=== PATIENT | female | born 1975 | race Caucasian/White ===

== ENCOUNTER 2017-02-24 05:50 | Day surgery (SDC) | payer OTHER ==
[~2017-02-24] VITALS: Ht 162.6 cm; Wt 102.9 kg
[2017-02-24] VITALS (8 sets, daily range): BP systolic 106–121; BP diastolic 65–76; PULSE 68–93; RESP 14–18; O2SAT 95–99
[~2017-02-24 05:50] MED LIST: ALPR0.254 PO; AMPH20TA5 PO; BUPR150T8 PO; CALC600T12 PO; CETI10CA PO; CHOL200047 PO; CITA40TA13 PO; LEVO137C2 PO; LORazepam 1 mg Tablet PO PRN; MAGN400T4 PO
[2017-02-24] MEDS ORDERED: Rocuronium 10 mg/mL 5 mL Inj ONE (05:51)
[2017-02-24] MEDS ORDERED: Dexamethasone 4 mg/mL Inj ONE (05:51)
[2017-02-24] MEDS ORDERED: Ketamine 10 mg/mL 20 mL Inj ONE (05:51)
[2017-02-24] MEDS ORDERED: fentaNYL-PF 50 mCg/mL 2 mL Inj ONE (05:51)
[2017-02-24] MEDS ORDERED: Propofol 10,000 mCg/mL 20 mL Inj ONE (05:51)
[2017-02-24] MEDS ORDERED: Ondansetron 2 mg/mL 2 mL Inj ONE (05:51)
[2017-02-24] MEDS ORDERED: DEXTROSE 5% IV ONE (06:00)
[2017-02-24] MEDS: Lactated Ringer's 1,000 ML IV SCH ×3 (06:00→10:00)
[2017-02-24] MEDS ORDERED: GENTAMICIN IV ONE (06:00)
[2017-02-24] MEDS ORDERED: Clindamycin Inj 900 MG in IV Premix 1 EACH IV SCH (06:00)
[2017-02-24] MEDS ORDERED: Clindamycin 900 mg/50 mL D5W Premix IV ONE (06:03)
[2017-02-24 06:49] LABS: BASOPHILS % (AUTO) 0.3 % (0-3); EOSINOPHILS % (AUTO) 2.4 % (0-5); MONOCYTES % (AUTO) 8.7 % (4-12); Mean Corpuscular Hemoglobin 30.5 pg (27.0-35.0); Mean Corpuscular Volume 92.8 fL (81-100); NEUTROPHILS % (AUTO) 58.5 % (40-74); Platelet Count 273 bil/L (150-400)
[2017-02-24] MEDS ORDERED: HYDROmorphone 1 mg/mL Inj IVPUSH PRN ×2 (07:40→10:20)
[2017-02-24] MEDS ORDERED: Dexamethasone 4 mg/mL Inj IVPUSH PRN (07:40)
[2017-02-24] MEDS ORDERED: Ondansetron 2 mg/mL 2 mL Inj IVPUSH PRN ×2 (07:40→10:20)
[2017-02-24] MEDS ORDERED: Lactated Ringer's 500 ML IV PRN (07:40)
[2017-02-24] MEDS ORDERED: MetoCLOpramide 5 mg/mL 2 mL Inj IVPUSH PRN ×2 (07:40→10:20)
[2017-02-24] MEDS ORDERED: fentaNYL-PF 50 mCg/mL 2 mL Inj IVPUSH PRN (07:40)
[2017-02-24] MEDS ORDERED: Lactated Ringer's 1,000 ML IV SCH (07:40)
[2017-02-24] MEDS ORDERED: EPHEDrine Sulfate 50 mg/mL Inj IVPUSH PRN (07:40)
[2017-02-24] MEDS ORDERED: Phenylephrine 10,000 mCg/mL Inj IVPUSH PRN (07:40)
--- NOTE | 2017-02-24 07:40 | PCM.HPANE ---
Patient Data Surgeon Admitting Provider: Attending Provider:Georgia Hernandez MD Primary Care Physician:Haydee Zurita MD Other Provider:Balta James Anesthesia Reason for Visit Abnormal Uterine And Vaginal Bleeding Ht/WT & BMI Height (Feet): 5 Height (Inches): 4 Weight (Kilograms): 102.9 Body Mass Index 38.00 Allergies Coded Allergies: latex (Verified Allergy, Unknown, itch, 02/23/17) Uncoded Allergies: CEPHALOSPORIN (Allergy, Unknown, hives, 02/23/17) Past Anesthesia History Anesthesia History: Denies:: Abnormal Airway, Anesthesia Reactions, Difficult Intubation, Fam Anesthesia Reaction Diabetes History Hx Diabetes?: No MRSA MRSA: No Medications Hypertension Medication: No Home Meds Incl Beta Meme: No Reported Medications Cetirizine HCl (Zyrtec)10 Mg Thfgrom57 Mg PO HS #30 CAPSULE Ref 0 02/23/17 Bupropion ER (Wellbutrin SR)150 Mg Tablet.er150 Mg PO BID Ref 0 02/23/17 Cholecalciferol (Vitamin D3) (Vitamin D3)2,000 Unit Capsule2,000 Unit PO DAILY 02/23/17 Levothyroxine (Tirosint)137 Mcg Pasnasm153 Mcg PO DAILY 02/23/17 Magnesium Oxide 400 Mg Auordr353 Mg PO DAILY 02/23/17 Citalopram 40 Mg Zvsykf20 Mg PO DAILY 30 Days Ref 0 02/23/17 Calcium Carbonate (Calcium)600 Mg Zrfgzy529 Mg PO DAILY 02/23/17 Alprazolam 0.25 Mg Tablet0.25 Mg PO TID PRN For Anxiety Ref 0 02/23/17 Amphet Asp/Amphet/D-Amphet (Adderall)20 Mg Rxczic24 Mg PO DAILY Ref 0 02/23/17 History History of ENT Problems?: Yes HEENT History: Positive for:: TMJ (clenches teeth, occasional nightguard) Denies:: Abnormal Airway Cataracts Difficult Intubation Dysphagia Glaucoma Hearing Problem Sinus Problem Denture Type: None Teeth Condition: Within Normal Limits Hx of Heart Problems?: No Cardiovascular History: Denies:: AICD Abdominal Aortic Aneurism Atrial Fibrillation Cardiac Surgery Chest Pain Congestive Heart Failure Coronary Artery Disease Edema Heart Murmur Hypertension Irregular Heartbeat Pacemaker Hx of Respiratory Problem?: No Respiratory History: Denies:: Asthma COPD Emphysema Oxygen Administration Pneumonia Tuberculosis Use of C-PAP Machine (hx of CPAP use, not since tonsillectomy 2012) Use of Inhalers / NEBS Hx Neurologic Problems?: Yes Neurological History: Positive for:: Dizziness (occasional) Headaches Denies:: Alzheimer's Disease CVA Dementia Multiple Sclerosis Parkinson's Disease Seizures TIA Hx of GI Problems?: No Hx of Problems?: Yes Genitourinary History: Denies:: Kidney Stones Urinary Tract Infection Other Pertinent History: pt has prior hx of laparascopic left kidney tumor removal- benign Female Hx: Positive for:: Problems with Breasts? (hx breast reduction) Denies:: Currently (neg preg test) Skin History: Denies:: History Skin Disorders? 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 Denies:: Blood Transfusions Hx Diabetes: No Hx Alcohol Use: NoHx Substance Use: NoHave You Smoked inLast 12 mo: No Stop/Bang Treated for Sleep Apnea?: No Do You Have a CPAP Machine?: No S-Snoring: Do You Snore Loudly: No T-Tired: feel tired, fatigued: Yes O-Obsered: Observed not breath: No P-Blood Pressure: treated: No B- Body Mass Index > 35 kg/m2: Yes A- Age over 50: No N- Neck Large Circumference: No G- Gender Male: No SARAH Total Score: 2 SARAH Risk Assessment: Low Risk, <3 Yes Risk Assessment Category Category 1A: Patient has history of documented sleep apnea, and HAS NOT received any narcotic, sedative or anesthesia administration during this stay. Category 1B: Patient has history of documented sleep apnea, and HAS received any narcotic , sedative or anesthesia administration during this stay Category 2: Patient has SUSPECTED Obstructive Sleep Apnea, and HAS received any narcotic , sedative or anesthesia administration during this stay. Category 3: Patient has SUSPECTED Obstructive Sleep Apnea and HAS NOT received narcotic, sedative or anesthesia administration during this stay. Category 4: Outpatient in Procedural Areas with known sleep apnea or who screen positive for High Risk via the STOP/BANG questionnaire. Exam Exam Vital Signs Vital Signs Date Time Temp Pulse Resp B/P Pulse Ox O2 Delivery O2 Flow Rate FiO2 02/24/17 06:16 35.9 85 17 109/76 96 Room Air General Appearance: Alert, Oriented X3, Cooperative, No Acute Distress HEENT/AIRWAY: MP 2 Lungs: Clear to Auscultation, Normal Air Movement Heart: Exam Unremarkable, Regular Rate/Rhythm, No Murmurs/Rubs/Gallops Meds/Labs/Diagnostics Admission Meds Current Medications Lactated Ringer's (Lr) 1,000 ml @ 120 mls/hr Q8H20M IV Last administered on t 06:00; Start 02/24/17 at 05:00; Stop 02/24/17 at 13:19 Labs Test 02/24/17 06:30 White Blood Count 7.0th/mm3 (3.8-10.1) Red Blood Count 4.03mil/mm3 (3.90-5.20) Hemoglobin 12.3g/dL (12.0-15.6) Hematocrit 37.4% (35.0-46.0) Mean Corpuscular Volume 92.8fL (81-100) Mean Corpuscular Hemoglobin 30.5pg (27.0-35.0) Mean Corpuscular Hemoglobin Concent 32.9% (32.0-37.0) Red Cell Distribution Width 13.1% (12.3-15.4) Platelet Count 273bil/L (150-400) Neutrophils (%) (Auto) 58.5% (40-74) Lymphocytes (%) (Auto) 30.0% (14-46) Monocytes (%) (Auto) 8.7% (4-12) Eosinophils (%) (Auto) 2.4% (0-5) Basophils (%) (Auto) 0.3% (0-3) Plan Impression Patient chart reviewed, patient interviewed and anesthestic plan with risks, benefits, and alternatives discussed, and informed consent obtained. NPO per Anesth. Guidelines: Yes ASA Physical Status: ASA2 Mod Systemic Disease (bmi 38) Anesthetic Plan: GA Bene/Risks/Altern/Consents: Yes HP Complete Prior to Induction: Yes Jens Shepherd MD Feb 24, 2017 07:40
[2017-02-24] MEDS ORDERED: Bupivacaine-MPF 0.5% W/EPI 30 mL Inj INFILTRATE ONE (08:10)
--- NOTE | 2017-02-24 10:15 | PCM.DIGYN ---
Surgical Discharge Instruction Dates of Hospitalization Date of Hospital Admission Providers Admitting Physician: Primary Care Physician: Haydee Zurita MD Attending Physician: Georgia Hernandez MD Diet Discharge Diet: No restrictions Activity Discharge Activity-General: Balance rest and activity, Activity as energy allows, No lifting >10 pounds for 4-6 weeks, No driving while taking narcotic, Other (Pelvic rest x6 weeks ) Dressing and Incisional Care Dressing Care: Keep dressing clean, dry & intact Hygiene: May shower, NO bathtub, hot tub or whirlpool Additional Instructions Discharge Instructions Your surgery was uncomplicated. Please call with severe pain, temperature greater than 100.5, heavy vaginal bleeding, fevers or chills, or malodorous discharge. Follow Up Plan Follow-up appointment: Weeks (2) Call your provider for: Fever, Chills, Shortness of breath, Heavy vaginal bleeding, Increasing pain Georgia Hernandez MD Feb 24, 2017 10:15
[2017-02-24] MEDS ORDERED: oxyCODONE-Acetamin 5-325 mg Tablet PO PRN (10:20)
[2017-02-24] MEDS ORDERED: diphenhydrAMINE 25 mg Capsule PO PRN (10:20)
--- NOTE | 2017-02-24 11:06 | OP ---
[address] [address] OPERATIVE REPORT PATIENT: MICHELET REYES : 1975 MR#: [id number] ADMIT: 02/24/2017 JOB ID: [id number] DATE OF SURGERY: 02/24/2017 PREOPERATIVE DIAGNOSIS(ES): Abnormal uterine bleeding and recurrent abnormal Pap smears. POSTOPERATIVE DIAGNOSIS(ES): Abnormal uterine bleeding and recurrent abnormal Pap smears. PROCEDURE PERFORMED: 1. Total laparoscopic hysterectomy with bilateral salpingectomy. 2. Cystoscopy. SURGEON: Georgia Hernandez M.D. SERVER DEVELOPER: Tanya Drew M.D., who was necessary for safe completion of the case. ANESTHESIA: General endotracheal anesthesia. ESTIMATED BLOOD LOSS: 150 cc. FLUID REPLACEMENT: 1200 cc of crystalloid. URINE OUTPUT: 400 cc of clear yellow urine. FINDINGS: Eight week size uterus. Normal appearing ovaries and fallopian tubes. Right-sided paratubal cyst, simple appearing paratubal cyst. COMPLICATIONS: None apparent. INDICATIONS: This is a 41-year-old G 1, P 1-0-0-1 female who presented to our clinic requesting definitive management of abnormal uterine bleeding as well as treatment for recurrent abnormal Pap smears requiring repeated colposcopies. After discussing with her all of her treatment options, she elected to proceed with a total laparoscopic hysterectomy, bilateral salpingectomy and cystoscopy. She did have a Mirena IUD in place. Risks, benefits and alternatives were discussed with her prior to surgery and she elected to proceed. DESCRIPTION OF PROCEDURE: The patient was taken to the operating room. She was placed in dorsal lithotomy position. Prepped and draped in the usual sterile fashion for the surgery. A bivalved speculum was placed. Her cervix was grasped with an Allis clamp and serially dilated to allow a size 7 Hegar dilator. A medium-sized VCare uterine manipulator was then placed and a Cesar catheter was inserted. Prior to placement of the VCare uterine manipulator, her Mirena IUD was removed. Attention was then turned to her abdomen. After injection with local anesthetic, an incision was made through her previous 5 mm infraumbilical port site for her laparoscopic appendectomy. A Veress needle was then inserted through the midline of the umbilicus and the abdomen was then insufflated. The opening pressure was higher than would be expected so this was then removed and direct visualized entry was then completed using a 5 mm trocar and intra-abdominal placement was then confirmed. Next the right lower quadrant and left lower quadrant 5 mm ports were then placed after injection of local anesthetic and a 5 mm incision. These trocars were then placed under direct visualization. The abdominal cavity was surveyed and noted to be free of adhesive disease. There was a moderate amount of preperitoneal fat which did make visualization of the uterus moderately difficult. The patient was then placed in Trendelenburg position. The right fallopian tube was elevated and using the Thunderbeat cautery was along the mesosalpinx to the level of the cornua. This was then removed at the level of the cornua and brought out and sent to Pathology. The patient desired ovarian conservation and the utero-ovarian ligament was then cauterized and transected using the Thunderbeat. Round ligament was then cauterized and transected and the broad ligament was to anterior and posterior sheaths and the uterine serosa was brought anteriorly across the top of the lower uterine segment to create a bladder flap. Separation of the broad ligament allowed for skeletonization of the uterine arteries. This was then sealed with the electrocautery. Attention was then turned to the right side where the right fallopian tube was elevated and transected along the mesosalpinx to the level of the uterine cornua. This was then transected and removed from the abdominal cavity after the small paratubal cyst was drained. This was then sent to Pathology. The utero-ovarian ligament was then cauterized and transected followed by the round ligament. The anterior and posterior sheaths of the broad ligament were then transected down towards the uterine isthmus and the previously created bladder flap was then connected across the anterior portion of the uterine serosa until the bladder was appropriately reflected downward off the lower uterine segment. After the right-sided uterine arteries were skeletonized, these were then cauterized and sealed and cut. Attention was then turned back to the left side where the left uterine arteries were then transected as well and the descending branch of the uterine artery was brought down bilaterally away from the field of dissection around the vaginal cuff. The colpotomy was then made using the Thunderbeat until the green Death by Party uterine manipulator cup was identified and this was carried around starting posteriorly until it was brought all the way circumferentially and the uterus and cervix were from the top of the vagina. The uterus and cervix were then removed en bloc and sent to Pathology. Sponge and glove was then placed into the vagina. The abdominal cavity was then irrigated and the vaginal cuff was then closed with a V-Loc suture in a running, nonlocking fashion starting in the left cornua. The suture was run in a continuous suture to the left cornua about the apex and then brought to the right apex at which point it was brought back three stitches back to the midline to prevent any dehiscence or suture unraveling. This was then cut at the level of the tissue and the remainder of the suture and needle were brought out of the abdominal cavity. The pelvis was then irrigated and hemostasis was noted. The pneumoperitoneum was released from the abdomen and hemostasis was again noted with lower intra-abdominal pressure. The skin was then closed with 4-0 Vicryl and Dermabond was placed on top of these and a cystoscopy was performed. The Cesar catheter was removed from the bladder and the cystoscope was then inserted and a survey of the entire bladder revealed no evidence of any bladder injury, trauma or sutures and she had strong bilateral ureteral jets. The cystoscope was then removed. The procedure was completed. The patient tolerated this procedure well. She recovered in PACU. All sponge, needle and instrument counts were correct.
--- NOTE | 2017-02-24 12:34 | PCM.ANEP1 ---
Post Anesthesia PACU Phase 1 Assessment Vital Signs Vital Signs Date Time Temp Pulse Resp B/P Pulse Ox O2 Delivery O2 Flow Rate FiO2 02/24/17 11:50 78 18 113/70 95 Room Air 02/24/17 11:22 84 16 106/70 97 Room Air 02/24/17 10:50 74 14 116/70 96 Nasal Cannula 2 02/24/17 10:21 90 16 118/75 99 Simple Mask 10 02/24/17 10:15 36.7 93 14 121/76 99 Simple Mask 10 02/24/17 06:16 35.9 85 17 109/76 96 Room Air Anesthetic Administered: GA Level of Alertness: Sleepy, easy to arouse REYES's with Equal Strength: Yes Pain: No Nausea or Vomiting: No CV Function & Hydration Stable: Yes Airway Device: Oralpharangeal Airway Oxygen Delivery: Simple Mask Lungs: Clear to Auscultation, Normal Air Movement Dermatome Level: Full Sensation PACU Phase 2 Assessment Complications: No Follow up Care: No Patient Instructions Provided: N/A Jens Shepherd MD Feb 24, 2017 12:34
[2017-02-24] MEDS ORDERED: oxyCODONE-Acetamin 5-325 mg Tablet PO ONE (13:08)
[2017-02-25] MEDS ORDERED: Gentamicin Per Pharmacist XX ONE (06:00)
[2017-02-25] MEDS ORDERED: DEXTROSE 5% IV ONE (06:00)
[2017-02-25] MEDS ORDERED: Clindamycin Inj 900 MG in IV Premix 1 EACH IV SCH (06:00)
[2017-02-25] MEDS ORDERED: GENTAMICIN IV ONE (06:00)
--- NOTE | 2017-02-27 15:15 | PATH ---
SURGICAL PATHOLOGY Attending Physician:Georgia Hernandez, CASE STATUS: Signed Out PATIENT NAME: MICHELET REYES PID: [id number] : 1975 DATE COLLECTED:02/24/2017 21:55 SPECIMEN: 1: Fallopian Tube, Biopsy 2: Fallopian Tube, Biopsy 3: Uterus +/- tubes/ovaries, except neoplastic, prolapse CLINICAL HISTORY: ABNORMAL UTERINE BLEEDING 1). LEFT FALLOPIAN TUBE 2). RIGHT FALLOPIAN TUBE 3). UTERUS FINAL DIAGNOSIS: 1.LEFT FALLOPIAN TUBE: NO EVIDENCE OF MALIGNANCY. 2.RIGHT FALLOPIAN TUBE: NO EVIDENCE OF MALIGNANCY. 3.UTERUS (91 GRAMS): ADENOMYOSIS. DECIDUALIZED ENDOMETRIUM, CONSISTENT WITH EXOGENOUS HORMONE THERAPY. SMALL FOCUS OF MILD SQUAMOUS DYSPLASIA (KHLOE 1). NO EVIDENCE OF INVASIVE NEOPLASM. SURGICAL MARGINS NEGATIVE FOR DYSPLASIA. ICD10 N80.0 N87.0 GROSS DESCRIPTION: The specimens are received in formalin, labeled with the patient's name, and sublabeled as the following: (1) left fallopian tube; (2) right fallopian tube; (3) uterus. (1) The specimen consists of a fimbriated fallopian tube (length-5.5 cm, diameter-0.5 cm). The serosa is jean-craig smooth and shiny. The lumen is craig and unremarkable. No nodules, masses or lesions are identified. Section code: (1A) fallopian tube, serially sectioned, field service representative; (1B) fimbria, bivalved, entirely submitted. (2) The specimen consists of a fimbriated fallopian tube (length-5.7 cm, diameter-0.6 cm). The serosa is pale jean smooth and shiny. The lumen is craig and unremarkable. No nodules, masses or lesions are identified. Section code: (2A) fallopian tube, serially sectioned, field service representative; (2B) fimbria, bivalved, entirely submitted. (3) The specimen consists of a uterus (91 g, 4.1 cm AP, 9.4 cm SI, 5.7 cm ML). The ovaries and fallopian tubes are absent. The cervix (2.8 cm AP, 3.3 cm ML) has a transverse os and patent endocervical canal. The endometrium (average thickness-0.1 cm) is craig-pink smooth and flat. The myometrium (thickness-1.8 cm) is craig and unremarkable. The serosa is craig-saunders smooth and shiny. Section code: (3A) anterior cervix; (3B) posterior cervix; (3C, 3D) anterior endomyometrium; (3E, 3F) posterior endomyometrium. 02/25/17 JM MICRO DESCRIPTION: See diagnosis. ICD-9 CODES: CPT CODES: 1: 78653 2: 99368 3: 78750 Electronically Signed Out Chris Delaney MD [facility] [address], [place] [address] Technical component performed at [facility], [facility] [address], [place], [address]
== END 2017-02-24 23:59 | disposition home or self-care (01) ==
LOC: SAS 05:50
PROVIDERS: ATTEND Obstetrics & Gynecology
DX: N93.9 Abnormal uterine and vaginal bleeding, unspecified (principal); R87.629 Unspecified abnormal cytological findings in specimens from vagina; N80.0 Endometriosis of uterus; N87.0 Mild cervical dysplasia; E03.9 Hypothyroidism, unspecified; F41.8 Other specified anxiety disorders; F98.8 Other specified behavioral and emotional disorders with onset usually occurring in childhood and adolescence; E66.8 Other obesity; Z68.39 Body mass index [BMI] 39.0-39.9, adult
CPT/HCPCS: 36415; 58301; 58571; 85025; J1100; J1580; J1885; J2250; J2405; J3010; J7120